=== PATIENT | male | born 1985 | race Caucasian/White ===

== ENCOUNTER 2017-02-10 08:34 | Emergency (ER) | payer SELFPAY ==
--- NOTE | 2017-02-10 08:54 | ED Physician Chart ---
ED Chief Complaint/HPI - Patient Information Date Seen:: 02/10/17 Time Seen:: 08:40 Chief Complaint:: Sore throat for 3 days. History of Present Illness:: As above. No fever. Taking po well without N/V/D. No other bodily pain or discomfort. Allergies:: Allergies Allergy/AdvReac Type Severity Reaction Status Date / Time No Known Allergies Allergy Verified 02/10/17 08:40 Vitals:: see Nurse Note Historian:: Patient Family MD/PCP:: Unknown LMP:: N/A Review:: Nurse's Note Reviewed ED Review of Systems - Review of Systems General/Constitutional: No fever, No chills, No weight loss, No weakness, No diaphoresis, No edema, No loss of appetite Skin: No skin lesions, No rash, No bruising Head: No headache, No light-headedness Eyes: No loss of vision, No pain, No diplopia ENT: No earache, No nasal drainage, Sore throat Neck: No neck pain, No swelling, No stiffness, No mass noted Cardio Vascular: No chest pain, No palpitations, No orthopnea, No edema Pulmonary: No SOB, No cough, No wheezing GI: No nausea, No vomiting, No diarrhea, No pain G/U: No dysuria, No frequency, No hematuria Musculoskeletal: No bone or joint pain, No back pain, No muscle pain Endocrine: No polyuria, No polydipsia Psychiatric: No prior psych history Hematopoietic: No bruising, No lymphadenopathy Neurological: No syncope, No focal symptoms, No weakness, No paresthesia, No headache, No dizziness, No confusion ED Past Medical History - Past Medical History Past Medical History: No significant medical hx Family History: None Social History: Non Smoker, Alcohol (occasional), No Drug Use, Single, Employed , Other (lives with a roommate.) Employment:: Gardening. Surgical History: None Psychiatricy History: None Medication: Reviewed ED Physical Exam - Physical Examination General/Constitutional: Awake, Well-developed, well-nourished, Alert, No distress, GCS 15, Non-toxic appearing, Ambulatory Other Gen/Cons comments:: Breathes comfortably , speaks clearly, interacts normally, and ambulates without difficulty. Head: Atraumatic Eyes: Lids, conjuctiva normal, PERRL, EOMI Skin: Nl inspection, No rash, No skin lesions, No ecchymosis, Well hydrated Other Skin comments:: Mild cervical lymphadenopathy. ENMT: External ears, nose nl, TM canals nl, Nasal exam nl, Lips, teeth, gums nl Other ENMT comments:: tonsils show trace erythema with mild white exudate. Neck: Nontender, Full ROM w/o pain, No nuchal rigidity, No mass, No stridor Respiratory: Nl effort/Exclusion, Clear to Auscultation, No Wheeze/Rhonchi/Rales Cardio Vascular: RRR, No murmur, gallop, rubs GI: No tenderness/rebounding/guarding, No organomegaly, Normal BS's, Nondistended Other GI comments:: Abdomen is soft. Extremities: No tenderness or effusion, Full ROM, normal strength in all extremities, No edema, Normal digits & nails Neuro/Psych: Alert/oriented (oriented x 3.), Judgement/insight normal, Mood normal, Normal gait, No focal deficits ED Septic Shock - . Is Septic Shock (SBP<90, OR Lactate>4 mmol\L) present?: No ED Reassessment (Disposition) - Reassessment Reassessment:: 0900 Pt remains stable. Pt requests to go home now. Aftercare instructions have been given. Pt speaks adequate Persian, but he is primarily Thai speaking. Interpretation is also provided by my nurse Mr. Venkatesh Garcia to ensure complete understanding. - Diagnosis Diagnosis:: Acute tonsillitis, stable. - Aftercare/Follow up Instructions Notes:: Bedrest today. Increase oral fluid. Oral hygiene instructions given. May take throat drop such as Cepacol lozenges as directed as needed for comfort. May take Tylenol 500 mg tab one tab po q6h prn for pain or fever. F/U with Dr. Vazquez or PCP of pt's choice in 2-3 days for recheck. Return to ER immediately if condition worsens or if any further questions/problems. Medication Prescribed:: Amoxicillin 500 mg tab one tab po q8h for 10 days. D-30 R-0 - Patient Disposition Discharge/Transfer:: Home Time:: 09:00 Condition at Disposition:: Stable
== END 2017-02-10 09:05 | disposition home or self-care (01) ==
LOC: ER 08:34
DX: J03.90 Acute tonsillitis, unspecified (principal)
CPT/HCPCS: Z7502